=== PATIENT | male | born 1945 | race Two or more races ===

== ENCOUNTER 2022-05-28 05:52 | Inpatient (IN) | payer MEDICARE, MEDICAID ==
[2022-05-25 15:55] LABS: Basophils # (auto) 0.1 10 ^3/uL (0-0.2); Basophils % (auto) 0.9 % (0.0-2.0); Eosinophils # (auto) 0.2 10 ^3/uL (0-0.8); Eosinophils % (auto) 2.5 % (0.0-7.0); Hematocrit 39.4 % (41.0-53.0); Hemoglobin 13.1 g/dL (13.5-17.5); Lymphocytes # (auto) 2.5 10 ^3/uL (0.4-5.4); Mean Corpuscular Hgb Conc. 33.3 g/dL (32.0-36.0); Mean Corpuscular Volume 96.1 fL (80.0-100.0); Monocytes # (auto) 0.9 10 ^3/uL (0-1.3); Monocytes % (auto) 9.8 % (0.0-12.0); Neutrophils # (auto) 5.5 10 ^3/uL (1.6-8.6); Neutrophils % (auto) 59.8 % (37.0-80.0); Red Cell Distribution Width 13.2 % (11.8-14.3); White Blood Cell 9.2 10^3/uL (4.4-10.8)
[2022-05-25 16:10] LABS: Urine Bacteria NONE SEEN /hpf (None Seen); Urine Blood Negative /uL (Negative); Urine Mucus FEW (None Seen); Urine Specific Gravity 1.027 (1.001-1.035); Urine WBC 1 /hpf (0 - 3)
[2022-05-25 16:23] LABS: Albumin 3.6 g/dL (3.4-5.0); Calcium 8.8 mg/dL (8.5-10.1); Potassium 4.2 mmol/L (3.5-5.1)
[2022-05-25 16:26] LABS: BUN/Creatinine Ratio 16.3 (10.0-20.0); Bilirubin, Total 0.5 mg/dL (0.2-1.0); Total Protein 6.5 g/dL (6.4-8.2)
[2022-05-25 16:53] LABS: INR 1.02 (0.9-1.15); Partial Thromboplastin Time 25.1 sec (24.6-33.4)
[~2022-05-28] VITALS: Ht 172.7 cm; Wt 90.6 kg
[~2022-05-28 05:52] MED LIST: ALPR1TAB7 PO; ATOR20TA50 PO; CLON0.1T PO; DIP005TP TOP; FLUT110A IN; GLIP5TAB12 PO; HYDR-4072 PO; LACT10SO3 PO; OMEP20TA PO; ONDA-144 PO; PREG75CA PO; SUMA100T15 PO; ZOLP10TA6 PO
[2022-05-28] MEDS ORDERED: ceFAZolin 1GM/50ML 100 ML IV ONE (06:58)
[2022-05-28] MEDS ORDERED: SUCCINYLCHOLINE CHLORIDE 20 MG/ML 10ML VIAL IV ONE (07:24)
[2022-05-28] MEDS ORDERED: LIDOCAINE 2% JELLY 11ml (GLYDO) ONE (07:24)
[2022-05-28] MEDS ORDERED: MIDAZOLAM HCL 2MG/2ML 2ml VIAL (1mg/ml) ONE (07:25)
[2022-05-28] MEDS ORDERED: HYDROmorphone HCL 2 MG/ML VL/or syr ONE (07:25)
[2022-05-28] MEDS ORDERED: fentaNYL CITRATE 100 MCG/2 ML VL ONE (07:25)
[2022-05-28] MEDS ORDERED: PROPOFOL 10 MG/ML 20 ML IV ONE (07:48)
[2022-05-28] MEDS ORDERED: DexAMETHasone SOD PHOS 10MG/1ML VIAL INJ ONE (07:48)
[2022-05-28] MEDS ORDERED: SUGAMMADEX 200mg/2ml Vial (100MG/ML) IV ONE (09:15)
[2022-05-28] MEDS ORDERED: ONDANSETRON HCL 4 MG/2 ML VIAL IV PRN ×2 (10:30→11:00)
[2022-05-28] MEDS ORDERED: HYDROmorphone HCL 2 MG/ML VL/or syr IV PRN (10:30)
[2022-05-28] MEDS ORDERED: MORPHINE SULFATE 4 MG/ML SYR/VIAL IV PRN (10:30)
[2022-05-28] MEDS ORDERED: MIDAZOLAM HCL 2MG/2ML 2ml VIAL (1mg/ml) IV PRN (10:30)
[2022-05-28] MEDS ORDERED: ePHEDrine SULFATE 50 MG/ML AMP IV PRN (10:30)
[2022-05-28] MEDS ORDERED: LABETALOL HCL 5 MG/ML 4ML SYRINGE IV PRN (10:30)
[2022-05-28] MEDS ORDERED: MORPHINE SULFATE INJ 2 MG/ml SYRG IV PRN ×2 (11:00)
[2022-05-28] MEDS ORDERED: DOCUSATE SOD 100 MG CAP PO PRN (11:00)
[2022-05-28] MEDS ORDERED: MILK OF MAGNESIA 30ML SUSP PO PRN (11:00)
[2022-05-28] MEDS ORDERED: NITROGLYCERIN 0.4 MG SL TAB SL PRN (11:00)
[2022-05-28] MEDS ORDERED: ACETAMINOPHEN 325 MG TAB PO PRN (11:00)
[2022-05-28] MEDS ORDERED: ceFAZolin 1GM/50ML 50 ML IV SCH ×2 (11:00→16:00)
[2022-05-28] MEDS: CYCLOBENZAPRINE HCL 10 MG TAB PO SCH ×2 (14:04→21:26)
[2022-05-28] MEDS: D5W/SOD CHLO 0.9% 1,000 ML IV SCH ×2 (14:30→21:00)
[2022-05-28] MEDS: HYDROmorphone HCL 2 MG/ML VL/or syr ONE ×3 (14:59→15:24)
[2022-05-28 16:58] VITALS: BP 131/65
[2022-05-28] MEDS: HYDROmorphone HCL 2 MG/ML VL/or syr IV PRN (20:03)
[2022-05-28] MEDS: ceFAZolin 1GM/50ML 50 ML IV SCH (20:15)
[2022-05-28] MEDS: DOCUSATE SOD 100 MG CAP PO SCH (21:26)
[2022-05-28 22:00] VITALS: BP 92/56
[2022-05-29] MEDS: HYDROmorphone HCL 2 MG/ML VL/or syr IV PRN ×4 (01:07→22:24)
[2022-05-29] MEDS: ceFAZolin 1GM/50ML 50 ML IV SCH (04:26)
[2022-05-29 05:00] VITALS: BP 106/48
[2022-05-29] MEDS: D5W/SOD CHLO 0.9% 1,000 ML IV SCH ×2 (06:28→17:38)
[2022-05-29] MEDS: CYCLOBENZAPRINE HCL 10 MG TAB PO SCH ×3 (06:32→22:27)
[2022-05-29 08:00] VITALS: BP 148/70
[2022-05-29 08:30] VITALS: BP 148/70
[2022-05-29] MEDS: DOCUSATE SOD 100 MG CAP PO SCH ×2 (10:18→22:27)
[2022-05-29] MEDS: glipiZIDE 5 MG TAB PO SCH ×2 (13:14→18:36)
[2022-05-29] MEDS: ALPRAZolam 0.5 MG TAB PO SCH ×3 (13:14→22:27)
[2022-05-29 16:43] VITALS: BP 128/71
[2022-05-29] MEDS: HYDROcodone-ACET 10/325MG TAB PO PRN (18:36)
[2022-05-29 22:00] VITALS: BP 142/62
[2022-05-29] MEDS: ZOLPIDEM TARTRATE 5 MG TAB PO SCH (22:26)
[2022-05-30] MEDS: HYDROmorphone HCL 2 MG/ML VL/or syr IV PRN ×4 (03:12→21:35)
[2022-05-30 05:00] VITALS: BP 122/60
[2022-05-30] MEDS: ALPRAZolam 0.5 MG TAB PO SCH ×4 (06:26→21:34)
[2022-05-30] MEDS: glipiZIDE 5 MG TAB PO SCH ×2 (06:27→17:42)
[2022-05-30] MEDS: CYCLOBENZAPRINE HCL 10 MG TAB PO SCH ×3 (06:27→21:34)
[2022-05-30] MEDS: D5W/SOD CHLO 0.9% 1,000 ML IV SCH ×3 (06:28→21:42)
[2022-05-30 08:00] VITALS: BP 116/62
[2022-05-30 09:00] VITALS: BP 116/62
[2022-05-30] MEDS: DOCUSATE SOD 100 MG CAP PO SCH ×2 (09:01→21:34)
[2022-05-30] MEDS: HYDROcodone-ACET 10/325MG TAB PO PRN (12:03)
[2022-05-30 12:30] VITALS: BP 140/62
[2022-05-30] MEDS: ACETAMINOPHEN 325 MG TAB PO PRN (13:38)
[2022-05-30] MEDS ORDERED: cefTRIAXone 1GM/50ML D5W 50 ML IV ONE (15:30)
[2022-05-30] MEDS ORDERED: ceFAZolin 2 GM/D5W100ml 100 ML IV ONE (15:30)
[2022-05-30 17:00] VITALS: BP 128/62
[2022-05-30] MEDS: ZOLPIDEM TARTRATE 5 MG TAB PO SCH (21:33)
[2022-05-30 22:00] VITALS: BP 136/70
[2022-05-31] MEDS: HYDROmorphone HCL 2 MG/ML VL/or syr IV PRN ×5 (03:08→21:46)
[2022-05-31 05:09] VITALS: BP 94/64
[2022-05-31] MEDS: ALPRAZolam 0.5 MG TAB PO SCH ×4 (05:58→21:46)
[2022-05-31] MEDS: ACETAMINOPHEN 325 MG TAB PO PRN ×2 (05:59→16:05)
[2022-05-31] MEDS: CYCLOBENZAPRINE HCL 10 MG TAB PO SCH ×3 (06:00→21:45)
[2022-05-31] MEDS: HYDROcodone-ACET 10/325MG TAB PO PRN ×3 (06:00→23:02)
[2022-05-31] MEDS: glipiZIDE 5 MG TAB PO SCH ×2 (06:03→17:28)
[2022-05-31] MEDS: D5W/SOD CHLO 0.9% 1,000 ML IV SCH ×2 (06:04→17:28)
[2022-05-31 06:39] LABS: Basophils # (auto) 0.1 10 ^3/uL (0-0.2); Basophils % (auto) 0.5 % (0.0-2.0); Eosinophils # (auto) 0 10 ^3/uL (0-0.8); Hemoglobin 9.4 g/dL (13.5-17.5); Lymphocytes # (auto) 2.3 10 ^3/uL (0.4-5.4); Lymphocytes % (auto) 13.2 % (10.0-50.0); Mean Corpuscular Hemoglobin 33.3 pg (28.0-32.0); Mean Corpuscular Volume 95.2 fL (80.0-100.0); Monocytes # (auto) 2.4 10 ^3/uL (0-1.3); Neutrophils # (auto) 12.4 10 ^3/uL (1.6-8.6); Neutrophils % (auto) 72.3 % (37.0-80.0); Red Blood Cells 2.83 10^6/uL (4.5-5.90); Red Cell Distribution Width 12.9 % (11.8-14.3); White Blood Cell 17.1 10^3/uL (4.4-10.8)
[2022-05-31 06:59] LABS: Calcium 8.5 mg/dL (8.5-10.1)
[2022-05-31] MEDS: cefTRIAXone 1GM/50ML D5W 50 ML IV SCH (08:48)
[2022-05-31] MEDS: DOCUSATE SOD 100 MG CAP PO SCH ×2 (08:48→21:45)
[2022-05-31 08:55] VITALS: BP 112/50
[2022-05-31] MEDS ORDERED: ceFAZolin 2 GM/D5W100ml 100 ML IV SCH (10:00)
[2022-05-31 13:00] VITALS: BP 159/71
[2022-05-31 16:29] VITALS: BP 156/74
[2022-05-31 16:30] VITALS: BP 156/74
[2022-05-31] MEDS: ZOLPIDEM TARTRATE 5 MG TAB PO SCH (21:45)
[2022-05-31 22:00] VITALS: BP 145/56
[2022-06-01] MEDS: D5W/SOD CHLO 0.9% 1,000 ML IV SCH ×2 (02:35→13:26)
[2022-06-01 05:00] VITALS: BP 117/59
[2022-06-01] MEDS: ALPRAZolam 0.5 MG TAB PO SCH ×2 (06:32→11:39)
[2022-06-01] MEDS: HYDROmorphone HCL 2 MG/ML VL/or syr IV PRN (06:32)
[2022-06-01] MEDS: CYCLOBENZAPRINE HCL 10 MG TAB PO SCH ×3 (06:33→22:17)
[2022-06-01] MEDS: glipiZIDE 5 MG TAB PO SCH ×2 (06:34→18:00)
[2022-06-01 09:00] VITALS: BP 127/62
[2022-06-01] MEDS: cefTRIAXone 1GM/50ML D5W 50 ML IV SCH (09:34)
[2022-06-01] MEDS: DOCUSATE SOD 100 MG CAP PO SCH ×2 (09:35→22:17)
[2022-06-01 13:00] VITALS: BP 128/63
[2022-06-01] MEDS: ceFAZolin 2 GM/D5W100ml 100 ML IV SCH ×2 (13:26→22:18)
[2022-06-01 16:45] VITALS: BP 127/64
[2022-06-01] MEDS: HYDROcodone-ACET 10/325MG TAB PO PRN (18:51)
[2022-06-01 22:00] VITALS: BP 132/63
[2022-06-01] MEDS: ZOLPIDEM TARTRATE 5 MG TAB PO SCH (22:18)
[2022-06-02] MEDS: D5W/SOD CHLO 0.9% 1,000 ML IV SCH ×3 (02:00→21:00)
[2022-06-02 05:00] VITALS: BP 148/70
[2022-06-02] MEDS: ceFAZolin 2 GM/D5W100ml 100 ML IV SCH ×3 (06:12→22:21)
[2022-06-02] MEDS: glipiZIDE 5 MG TAB PO SCH ×2 (06:29→18:08)
[2022-06-02] MEDS: CYCLOBENZAPRINE HCL 10 MG TAB PO SCH ×3 (06:29→22:21)
[2022-06-02 08:47] VITALS: BP 122/71
[2022-06-02 10:57] LABS: Basophils # (auto) 0 10 ^3/uL (0-0.2); Basophils % (auto) 0.4 % (0.0-2.0); Eosinophils # (auto) 0 10 ^3/uL (0-0.8); Eosinophils % (auto) 0.4 % (0.0-7.0); Hematocrit 25.5 % (41.0-53.0); Hemoglobin 8.9 g/dL (13.5-17.5); Lymphocytes # (auto) 1.1 10 ^3/uL (0.4-5.4); Lymphocytes % (auto) 10.1 % (10.0-50.0); Mean Corpuscular Hemoglobin 32.9 pg (28.0-32.0); Mean Corpuscular Hgb Conc. 34.8 g/dL (32.0-36.0); Mean Corpuscular Volume 94.4 fL (80.0-100.0); Monocytes % (auto) 9.7 % (0.0-12.0); Neutrophils # (auto) 8.3 10 ^3/uL (1.6-8.6); Neutrophils % (auto) 79.4 % (37.0-80.0); Red Cell Distribution Width 12.5 % (11.8-14.3); White Blood Cell 10.4 10^3/uL (4.4-10.8)
[2022-06-02] MEDS: DOCUSATE SOD 100 MG CAP PO SCH ×2 (11:06→22:21)
[2022-06-02] MEDS: chlordiazePOXIDE HCL 25 MG CAP PO SCH ×2 (11:07→18:08)
[2022-06-02 11:32] LABS: Chloride 110 mmol/L (98-107); Potassium 3.9 mmol/L (3.5-5.1); Sodium 140 mmol/L (136-145)
[2022-06-02] MEDS: FOLIC ACID 1 MG, MULTIPLE VITAMIN 10 ML, MAGNESIUM SULF SDV 50% 8 MEQ, THIAMINE INJ 100... INJ SCH ×5 (11:35)
[2022-06-02 12:09] LABS: Alanine Aminotransferase 104 U/L (16-61); Albumin 2.4 g/dL (3.4-5.0); Alkaline Phosphatase 114 U/L (45-117); Anion Gap 6 (5-15); Aspartate Aminotransferase 128 U/L (15-37); BUN/Creatinine Ratio 18.1 (10.0-20.0); Bilirubin, Total 0.7 mg/dL (0.2-1.0); Blood Alcohol < 3.0 mg/dL (0-5); Blood Urea Nitrogen 13 mg/dL (7-18); Calcium 8.7 mg/dL (8.5-10.1); Carbon Dioxide 24 mmol/L (21-32); GFR African American 137 mL/min; GFR Non-African American 113 mL/min; Glucose 161 mg/dL (74-106); Total Protein 5.6 g/dL (6.4-8.2)
[2022-06-02 13:00] VITALS: BP 156/77
[2022-06-02 16:54] VITALS: BP 148/78
[2022-06-02 22:16] VITALS: BP 151/69
[2022-06-02] MEDS: ZOLPIDEM TARTRATE 5 MG TAB PO SCH (22:21)
[2022-06-03] MEDS: chlordiazePOXIDE HCL 25 MG CAP PO SCH ×3 (02:08→22:29)
[2022-06-03] MEDS: ACETAMINOPHEN 325 MG TAB PO PRN (02:09)
[2022-06-03 05:07] VITALS: BP 146/77
[2022-06-03] MEDS: ceFAZolin 2 GM/D5W100ml 100 ML IV SCH ×3 (05:46→22:30)
[2022-06-03] MEDS: CYCLOBENZAPRINE HCL 10 MG TAB PO SCH ×3 (05:46→22:30)
[2022-06-03] MEDS: glipiZIDE 5 MG TAB PO SCH ×2 (07:00→18:27)
[2022-06-03] MEDS: D5W/SOD CHLO 0.9% 1,000 ML IV SCH ×3 (07:00→22:30)
[2022-06-03 09:11] VITALS: BP 168/83
[2022-06-03] MEDS: DOCUSATE SOD 100 MG CAP PO SCH ×2 (09:14→22:30)
[2022-06-03] MEDS: HYDROmorphone HCL 2 MG/ML VL/or syr IV PRN ×3 (09:16→23:38)
[2022-06-03] MEDS: FOLIC ACID 1 MG, MULTIPLE VITAMIN 10 ML, MAGNESIUM SULF SDV 50% 8 MEQ, THIAMINE INJ 100... INJ SCH ×5 (13:51)
[2022-06-03] MEDS: LACTULOSE 20Gm/30ML SOLN PO SCH ×3 (13:53→23:39)
[2022-06-03 14:37] VITALS: BP 146/84
[2022-06-03 17:50] VITALS: BP 162/78
[2022-06-03 22:00] VITALS: BP 131/68
[2022-06-03] MEDS: ZOLPIDEM TARTRATE 5 MG TAB PO SCH (22:30)
[2022-06-04 04:35] VITALS: BP 144/77
[2022-06-04] MEDS: LACTULOSE 20Gm/30ML SOLN PO SCH ×3 (05:36→18:15)
[2022-06-04] MEDS: CYCLOBENZAPRINE HCL 10 MG TAB PO SCH ×3 (05:36→21:49)
[2022-06-04] MEDS: HYDROmorphone HCL 2 MG/ML VL/or syr IV PRN ×4 (05:37→22:14)
[2022-06-04] MEDS: ceFAZolin 2 GM/D5W100ml 100 ML IV SCH ×3 (05:37→22:14)
[2022-06-04 06:32] LABS: Albumin 2.2 g/dL (3.4-5.0); Calcium 8.1 mg/dL (8.5-10.1); Potassium 3.6 mmol/L (3.5-5.1)
[2022-06-04 06:37] LABS: Bilirubin, Total 0.6 mg/dL (0.2-1.0); Total Protein 5.2 g/dL (6.4-8.2)
[2022-06-04 06:41] LABS: Basophils # (auto) 0.1 10 ^3/uL (0-0.2); Eosinophils # (auto) 0.2 10 ^3/uL (0-0.8); Nucleated Red Blood Cells % 0.2 %; Red Cell Distribution Width 12.8 % (11.8-14.3)
[2022-06-04 06:43] LABS: Basophils % (auto) 1.2 % (0.0-2.0); Hemoglobin 8.2 g/dL (13.5-17.5); Lymphocytes % (auto) 25.9 % (10.0-50.0); Mean Corpuscular Hemoglobin 33.1 pg (28.0-32.0); Mean Corpuscular Hgb Conc. 34.3 g/dL (32.0-36.0); Mean Corpuscular Volume 96.8 fL (80.0-100.0); Monocytes # (auto) 1.3 10 ^3/uL (0-1.3); Monocytes % (auto) 11.1 % (0.0-12.0); Neutrophils % (auto) 59.8 % (37.0-80.0); Red Blood Cells 2.48 10^6/uL (4.5-5.90); White Blood Cell 11.7 10^3/uL (4.4-10.8)
[2022-06-04] MEDS: glipiZIDE 5 MG TAB PO SCH ×2 (07:04→18:15)
[2022-06-04 08:37] LABS: BUN/Creatinine Ratio 22.2 (10.0-20.0)
[2022-06-04 08:58] LABS: Hepatitis B Surface Antibody Negative (Negative)
[2022-06-04 09:00] VITALS: BP 116/58
[2022-06-04 09:28] LABS: Hepatitis A Total Antibody Positive (Negative)
[2022-06-04] MEDS: chlordiazePOXIDE HCL 25 MG CAP PO SCH ×2 (09:44→21:49)
[2022-06-04] MEDS: DOCUSATE SOD 100 MG CAP PO SCH ×2 (09:45→21:49)
[2022-06-04] MEDS: D5W/SOD CHLO 0.9% 1,000 ML IV SCH ×2 (12:43→21:50)
[2022-06-04 13:00] VITALS: BP 118/64
[2022-06-04] MEDS: FOLIC ACID 1 MG, MULTIPLE VITAMIN 10 ML, MAGNESIUM SULF SDV 50% 8 MEQ, THIAMINE INJ 100... INJ SCH ×5 (13:17)
[2022-06-04 14:29] LABS: Hepatitis C Antibody Reactive (Negative)
[2022-06-04 16:59] VITALS: BP 121/70
[2022-06-04] MEDS: ZOLPIDEM TARTRATE 5 MG TAB PO SCH (21:49)
[2022-06-04 22:00] VITALS: BP 121/59
[2022-06-05] MEDS: LACTULOSE 20Gm/30ML SOLN PO SCH ×4 (00:39→18:19)
[2022-06-05 05:00] VITALS: BP 124/64
[2022-06-05] MEDS: HYDROmorphone HCL 2 MG/ML VL/or syr IV PRN ×4 (05:43→22:04)
[2022-06-05] MEDS: CYCLOBENZAPRINE HCL 10 MG TAB PO SCH ×3 (05:55→22:01)
[2022-06-05] MEDS: ceFAZolin 2 GM/D5W100ml 100 ML IV SCH ×3 (06:58→22:01)
[2022-06-05] MEDS: glipiZIDE 5 MG TAB PO SCH ×2 (06:58→18:35)
[2022-06-05] MEDS ORDERED: chlordiazePOXIDE HCL 25 MG CAP PO SCH (07:00)
[2022-06-05 09:00] VITALS: BP 120/62
[2022-06-05] MEDS: D5W/SOD CHLO 0.9% 1,000 ML IV SCH ×2 (09:00→18:14)
[2022-06-05] MEDS: DOCUSATE SOD 100 MG CAP PO SCH ×2 (10:12→22:01)
[2022-06-05 13:00] VITALS: BP 124/67
[2022-06-05] MEDS: FOLIC ACID 1 MG, MULTIPLE VITAMIN 10 ML, MAGNESIUM SULF SDV 50% 8 MEQ, THIAMINE INJ 100... INJ SCH ×5 (13:12)
[2022-06-05 17:00] VITALS: BP 128/65
[2022-06-05 22:00] VITALS: BP 125/64
[2022-06-05] MEDS: ZOLPIDEM TARTRATE 5 MG TAB PO SCH (22:01)
[2022-06-06] MEDS: LACTULOSE 20Gm/30ML SOLN PO SCH ×3 (01:18→12:00)
[2022-06-06] MEDS: ceFAZolin 2 GM/D5W100ml 100 ML IV SCH ×2 (05:48→14:00)
[2022-06-06] MEDS: HYDROmorphone HCL 2 MG/ML VL/or syr IV PRN ×2 (05:50→13:40)
[2022-06-06] MEDS: CYCLOBENZAPRINE HCL 10 MG TAB PO SCH ×2 (06:03→14:00)
[2022-06-06] MEDS: D5W/SOD CHLO 0.9% 1,000 ML IV SCH ×2 (06:03→15:00)
[2022-06-06 06:12] LABS: Basophils # (auto) 0.1 10 ^3/uL (0-0.2); Eosinophils # (auto) 0.3 10 ^3/uL (0-0.8); Hematocrit 24.6 % (41.0-53.0); Hemoglobin 8.4 g/dL (13.5-17.5); Lymphocytes # (auto) 2.6 10 ^3/uL (0.4-5.4); Monocytes # (auto) 1.7 10 ^3/uL (0-1.3); Red Blood Cells 2.56 10^6/uL (4.5-5.90); Red Cell Distribution Width 13.2 % (11.8-14.3)
[2022-06-06 06:14] LABS: Basophils % (auto) 0.6 % (0.0-2.0); Eosinophils % (auto) 2.3 % (0.0-7.0); Lymphocytes % (auto) 17.6 % (10.0-50.0); Mean Corpuscular Hemoglobin 32.8 pg (28.0-32.0); Mean Corpuscular Hgb Conc. 34.2 g/dL (32.0-36.0); Mean Corpuscular Volume 95.9 fL (80.0-100.0); Monocytes % (auto) 11.4 % (0.0-12.0); Neutrophils # (auto) 9.9 10 ^3/uL (1.6-8.6); Neutrophils % (auto) 68.1 % (37.0-80.0); Nucleated Red Blood Cells % 0.1 %; White Blood Cell 14.5 10^3/uL (4.4-10.8)
[2022-06-06 06:33] LABS: Potassium 3.5 mmol/L (3.5-5.1)
[2022-06-06 06:50] LABS: BUN/Creatinine Ratio 12.5 (10.0-20.0); Bilirubin, Total 0.4 mg/dL (0.2-1.0); Calcium 7.9 mg/dL (8.5-10.1); Total Protein 5.6 g/dL (6.4-8.2)
[2022-06-06] MEDS: glipiZIDE 5 MG TAB PO SCH (06:55)
[2022-06-06 08:00] VITALS: BP 117/63
[2022-06-06] MEDS: DOCUSATE SOD 100 MG CAP PO SCH (10:00)
[2022-06-06] MEDS ORDERED: PANTOPRAZOLE 40 MG/10 ML VIAL INJ IV SCH (10:00)
[2022-06-06] MEDS ORDERED: CEPH500C PO ×2 (11:32→11:34)
[2022-06-06] MEDS ORDERED: LACT10PA2 PO (11:32)
[2022-06-06] MEDS ORDERED: HYDR2TAB58 PO (11:32)
[2022-06-06 12:00] VITALS: BP 142/71
[2022-06-06] MEDS: FOLIC ACID 1 MG, MULTIPLE VITAMIN 10 ML, MAGNESIUM SULF SDV 50% 8 MEQ, THIAMINE INJ 100... INJ SCH ×5 (12:00)
[2022-06-06 14:08] VITALS: BP 124/64
[2022-06-06 14:10] VITALS: BP 124/64
== END 2022-06-06 15:30 | disposition home health service (06) | DRG 454 ==
LOC: SUR 05:52 → TELE 11:04 → TELE-WESTW 15:52
PROVIDERS: ADMIT Orthopaedic Surgery; ATTEND Family Medicine
PROC: 0SG1071 Fusion of 2 or more Lumbar Vertebral Joints with Autologous Tissue Substitute, Posterior Approach, Posterior Column, Open Approach (ICD-10-PCS; principal; 2022-05-30)
PROC: 0SG10AJ Fusion of 2 or more Lumbar Vertebral Joints with Interbody Fusion Device, Posterior Approach, Anterior Column, Open Approach (ICD-10-PCS; 2022-05-30)
PROC: 01NB0ZZ Release Lumbar Nerve, Open Approach (ICD-10-PCS; 2022-05-30)
PROC: 0SG30KJ Fusion of Lumbosacral Joint with Nonautologous Tissue Substitute, Posterior Approach, Anterior Column, Open Approach (ICD-10-PCS; 2022-05-30)
PROC: 4A11X4G Monitoring of Peripheral Nervous Electrical Activity, Intraoperative, External Approach (ICD-10-PCS; 2022-05-30)
DX: M48.062 Spinal stenosis, lumbar region with neurogenic claudication (principal); E72.20 Disorder of urea cycle metabolism, unspecified; F41.9 Anxiety disorder, unspecified; G47.00 Insomnia, unspecified; I15.8 Other secondary hypertension; R50.82 Postprocedural fever; E11.51 Type 2 diabetes mellitus with diabetic peripheral angiopathy without gangrene; D64.9 Anemia, unspecified; Z20.822 Contact with and (suspected) exposure to COVID-19; B19.20 Unspecified viral hepatitis C without hepatic coma
CPT/HCPCS: 36415; 36600; 71045; 72100; 76000; 76705; 80048; 80053; 80320; 80329; 81001; 82105; 82140; 82270; 82805; 82962; 85025; 85610; 85730; 86704; 86706; 86708; 86803; 86850; 86900; 86901; 87040; 87086; 87340; 97110; 97116; 97163; 97530; C9113; G0378; J0330; J0690; J0696; J1100; J2250; J2704; J7042